=== PATIENT | male | born 1955 ===

== ENCOUNTER 2023-08-26 15:16 | Outpatient (CLI) | payer MEDICARE, SELFPAY ==
--- NOTE | 2023-08-26 15:27 | CT_ITS ---
WS: [id number] CT ABDOMEN AND PELVIS WITH CONTRAST HISTORY: RECTAL MASS, history of prostate cancer. TECHNIQUE: Imaging performed of the abdomen and pelvis with IV contrast. Single phase imaging of the abdomen. Coronal and sagittal reformats are submitted. All CT scans at [facility] use at [address] one of these dose optimization techniques: automated exposure control; mA and/or kV adjustment per patient size (includes targeted exams where dose is matched to clinical indication); or iterative re construction. IV CONTRAST: Omnipaque 350; 100 mL IV. Oral contrast: Yes. DLP: 337.93 mGy.cm COMPARISON: None available. Lower thorax: Benign granuloma at the lung bases. Heart is normal size. Small hiatal hernia. Liver/biliary system: Normal size liver. Too small to characterize low-attenuation nodule measuring 5 mm in the RIGHT lobe. Most likely this is a cyst. No masses. Normal portal vein. There are few scatt ered granulomata. Gallbladder: Normal. No gallstones or wall thickening. No pericholecystic fluid. Pancreas: Normal size pancreas and pancreatic duct. No adjacent inflammation. Spleen: Normal size with numerous granulomata. Adrenal glands: Normal. Right kidney: Normal. Left kidney: Normal. Aorta: Moderate atherosclerosis with no aneurysm. Lymphadenopathy: There is a single RIGHT obturator lymph node measuring 1.4 cm in diameter. Free fluid: None. GI tract: Normal stomach. No small bowel obstruction. Marked tortuosity of the colon with overlapping loops and constipation. The appendix is normal. There is an area of soft tissue fullness towards the rectum with displacement of the lumen. Soft tissue prominence is to the LEFT of midline. By history patient has a known rectal mass. Soft tissue prominence extends over a length of 2.3 cm and transvers rianna by 3.2 cm. Abdominal wall: Fat containing umbilical hernia. Pelvis: No free fluid. Numerous metallic seeds are present in the prostate gland from treatment relat ed to prostate cancer. The urinary bladder is negative. Bones: Unremarkable. IMPRESSION: 1. Soft tissue mass centered near the rectum. There is mild distortion of the soft tissues and displ acement of the lumen to the RIGHT. This would correspond to the history of a rectal mass. Mass measur es approximately 2.3 x 3.2 cm. This should be evaluated by colonoscopy. 2. Diffuse constipation. No obstruction. 3. Single RIGHT obturator lymph node measures 1.4 cm. Indeterminate. 4. Prior granulomatous disease. 5. No metastatic lesions within the osseous structures. 6. Moderate atherosclerosis aorta.
[2023-08-26] MEDS: iohexol 350 mg/mL 500 mL Btl (per mL) IV (15:49)
[2023-08-26] MEDS: iohexol 350 mg/mL 500 mL Btl (per mL) PO (15:50)
[2023-08-26 16:52] LABS: Blood Urea Nitrogen 11 mg/dL (8-23); Glomerular Filtration Rate 74.1 mL/min (90-130)
== END 2023-08-26 15:17 | disposition home or self-care (01) ==
LOC: RAD 15:19
PROVIDERS: Family Provider Nurse Practitioner; PCP Nurse Practitioner; Visit Provider Nurse Practitioner Family
DX: K62.9 Disease of anus and rectum, unspecified (principal); Z85.46 Personal history of malignant neoplasm of prostate; K59.00 Constipation, unspecified
CPT/HCPCS: 74177; 82565; 84520; Q9967

== ENCOUNTER → 2024-09-23 13:22 | Outpatient (BNVA) | payer MEDICARE, SELFPAY | PROVIDERS: Family Provider Nurse Practitioner; PCP Nurse Practitioner; Visit Provider Emergency Medicine | DX: R05.9 Cough, unspecified (principal); J18.9 Pneumonia, unspecified organism; Z95.828 Presence of other vascular implants and grafts | CPT/HCPCS: 71046; 87400; 87426 ==

== ENCOUNTER 2025-04-14 11:13 | Emergency (ER) | payer MEDICARE, SELFPAY ==
[2025-04-14 11:36] VITALS: BP 102/69; PULSE 77; RESP 17; TEMP 36.4; O2SAT 96; BMI 20.5
[2025-04-14 12:14] LABS: Basophils # 0.1 10^3/uL (0.0-0.1); Basophils % 0.4 %; Eosinophils # 0.1 10^3/uL (0.0-0.8); Eosinophils % 0.6 %; Hematocrit 36.5 % (37-53); Lymphocytes # 1.2 10^3/uL (0.8-4.8); Lymphocytes % 10.3 %; Mean Corpuscular HGB Conc 30.7 g/dL (30-55); Mean Corpuscular Hemoglobin 26.7 pg (27-33); Mean Corpuscular Volume 87.1 fl (82-101); Mean Platelet Volume 9.9 fL (7.4-10.4); Monocytes # 0.4 10^3/uL (0.2-0.9); Monocytes % 3.5 %; Neutrophils # 9.79 10^3/uL (1.8-7.7); Neutrophils % 84.4 %; Nucleated Red Blood Cells % 0 %; Platelet Count 347 10^3/cmm (157-399); Red Blood Count 4.19 10^6/uL (3.85-5.65)
[2025-04-14 12:24] VITALS: BP 129/71; PULSE 78; O2SAT 98
[2025-04-14 12:28] LABS: Bilirubin Urine Negative (Negative); Blood Urine Negative (Negative); Glucose Urine UA Negative (Normal); Ketones Urine Trace (Negative); Leukocyte Esterase Urine Negative (Negative); Nitrate Urine Negative (Negative); Protein Urine Negative (Negative); Urine Appearance Clear (CLEAR); Urine Color Yellow (Yellow); pH Urine 5.5 (5-7)
[2025-04-14 12:30] LABS: Add Urine Microscopic? YES; Bacteria Urine None Seen /hpf; Hyaline Casts Urine 19.02 /lpf; RBC Urine 0-2 /hpf (0-2); Squamous Epithelial Cell Urine 0-5 /hpf (0-5); WBC Urine 0-5 /hpf (0-5)
[2025-04-14 12:35] LABS: Alanine Aminotransferase 6 U/L (0-41); Albumin Level 3.7 g/dL (3.5-5.2); Alkaline Phosphatase 77 U/L (40-130); Anion Gap 17.2 (5-19); Aspartate Amino Transferase 10 U/L (0-40); Blood Urea Nitrogen 14 mg/dL (8-23); Calcium 8.9 mg/dL (8.5-10.5); Carbon Dioxide 26 mmol/L (22-29); Chloride 100 mmol/L (98-107); Creatinine Clr Calc Pharmacy 57.9215; Globulin 3.1 g/dL (1.3-4.6); Glomerular Filtration Rate 66.2 mL/min (90-130); Glucose 158 mg/dL (65-115); Osmolality Calculated 292 mOsm/kg (285-295); Potassium 4.2 mmol/L (3.5-5.1); Sodium 139 mmol/L (136-145); Total Bilirubin 0.2 mg/dL (0.15-1.2); Total Protein 6.8 g/dL (6.6-8.7)
[2025-04-14 12:38] LABS: UA Slide Review UA Slide Review Perf
[2025-04-14 12:40] VITALS: BP 115/74; PULSE 75; O2SAT 99
[2025-04-14 12:40] LABS: Add Urine Culture? No
--- NOTE | 2025-04-14 13:10 | PC.PHAR ---
Pt has a long list of medications ordered from [facility] for an appointment tomorrow 04/15/25.
--- NOTE | 2025-04-14 13:14 | W.ED.MALEGU ---
HPI - Male Genitourinary General: Chief complaint: Urogenital-Male Stated complaint: pain, trouble urinating, Time Seen by Provider: 04/14/25 12:18 History of Present Illness: 69-year-old male presents with some dysuria, feels like he is not completely emptying his bladder little bit of burning when he pees. He reports this been going on since yesterday. He does have a history of stage IV colon cancer and was concerned that that might have caused the issue. Associated symptoms: Reports dysuria Related Data Home Medications ?Medication ?Instructions ?Recorded ?Confirmed lisinopril 10 mg tablet 10 mg PO QAM 09/23/24 04/14/25 omeprazole 40 mg capsule,delayed 40 mg PO DAILY 04/14/25 04/14/25 release sertraline 50 mg tablet 50 mg PO DAILY 04/14/25 04/14/25 trazodone 100 mg tablet 100 mg PO BEDTIME 04/14/25 04/14/25 Allergies Allergy/AdvReac Type Severity Reaction Status Date / Time No Known Allergies Allergy Unverified 09/23/24 12:59 Review of Systems : Reports: difficulty urinating and dysuria [facility] ED PFSH: Social History Smoking and tobacco/nicotine status: former use of tobacco/nicotine Physical Exam Const: COMMON NORMALS: no acute distress, patient oriented x3 and alert Resp: COMMON NORMALS: normal respiratory effort and clear to auscultation bilaterally AUSCULTATION: clear to auscultation bilaterally Cardio: COMMON NORMALS: regular rate and regular rhythm RATE: regular rate RHYTHM: regular rhythm GI: COMMON NORMALS: Soft to palpation PALPATION: Yes Soft to palpation and Yes Tenderness to palpation present (GI) (Mild suprapubic) : COMMON NORMALS: Yes no CVA tenderness BLADDER/KIDNEY EXAM: Yes no CVA tenderness Back/Pelvis: COMMON NORMALS: no CVA tenderness Neuro: COMMON NORMALS: patient oriented x3 SENSORIUM/ORIENTATION: Yes alert Psych: COMMON NORMALS: mental status grossly normal, Normal thought process present and cooperative THOUGHT PROCESS: Normal thought process present Course Vital Signs: Vital signs: Vital Signs Temperature 97.6 F 04/14/25 11:36 Pulse Rate 75 04/14/25 12:40 Respiratory Rate 17 04/14/25 11:36 Blood Pressure 115/74 04/14/25 12:40 Pulse Oximetry 99 04/14/25 12:40 Oxygen Delivery Me thod Room Air 04/14/25 12:40 MDM - Male Medical Decision Making Patient's labs were reviewed. He has a very minimal elevated of his white count but otherwise no significant acute findings. Patient's urinalysis is not consistent with urinary tract infection. Patient is having some dysuria. I discussed with him some [id number] Azo. I also recommended he follow-up with his primary care provider for further evaluation as if his symptoms worsen he may need further workup and possibly started on a medication for enlarged prostate if they determine that would benefit him. Patient was stable and discharged home. Lab Data 04/14/25 12:02 04/14/25 12:02 Laboratory Results WBC 11.60 10^3/uL (3.29-11.43) H 04/14/25 12:02 RBC 4.19 10^6/uL (3.85-5.65) 04/14/25 12:02 Hgb 11.20 g/dL (11.27-16.99) L 04/14/25 12:02 Hct 36.5 % (37-53) L 04/14/25 12:02 MCV 87.1 fl (82-101) 04/14/25 12:02 MCH 26.7 pg (27-33) L 04/14/25 12:02 MCHC 30.7 g/dL (30-55) 04/14/25 12:02 RDW 16.0 % (12.1-15.1) H 04/14/25 12:02 Plt Count 347 10^3/cmm (157-399) 04/14/25 12:02 MPV 9.9 fL (7.4-10.4) 04/14/25 12:02 Neut % (Auto) 84.4 % 04/14/25 12:02 Lymph % (Auto) 10.3 % 04/14/25 12:02 [place] % (Auto) 3.5 % 04/14/25 12:02 Eos % (Auto) 0.6 % 04/14/25 12:02 Baso % (Auto) 0.4 % 04/14/25 12:02 Neut # (Auto) 9.79 10^3/uL (1.8-7.7) H 04/14/25 12:02 Lymph # (Auto) 1.2 10^3/uL (0.8-4.8) 04/14/25 12:02 [place] # (Auto) 0.4 10^3/uL (0.2-0.9) 04/14/25 12:02 Eos # (Auto) 0.1 10^3/uL (0.0-0.8) 04/14/25 12:02 Baso # (Auto) 0.1 10^3/uL (0.0-0.1) 04/14/25 12:02 Nucleated RBC % (auto) 0 % 04/14/25 12:02 Nucleated RBCs # 0.0 /100WBC 04/14/25 12:02 Sodium 139 mmol/L (136-145) 04/14/25 12:02 Potassium 4.2 mmol/L (3.5-5.1) 04/14/25 12:02 Chloride 100 mmol/L (98-107) 04/14/25 12:02 Carbon Dioxide 26 mmol/L (22-29) 04/14/25 12:02 Anion Gap 17.2 (5-19) 04/14/25 12:02 BUN 14 mg/dL (8-23) 04/14/25 12:02 Creatinine 1.1 mg/dL (0.7-1.2) 04/14/25 12:02 GFR Calculation 66.2 mL/min (90-130) L 04/14/25 12:02 Glucose 158 mg/dL (65-115) H 04/14/25 12:02 Calculated Osmolality 292 mOsm/kg (285-295) 04/14/25 12:02 Calcium 8.9 mg/dL (8.5-10.5) 04/14/25 12:02 Total Bilirubin 0.2 mg/dL (0.15-1.2) 04/14/25 12:02 AST 10 U/L (0-40) 04/14/25 12:02 ALT 6 U/L (0-41) 04/14/25 12:02 Alkaline Phosphatase 77 U/L (40-130) 04/14/25 12:02 Total Protein 6.8 g/dL (6.6-8.7) 04/14/25 12:02 Albumin 3.7 g/dL (3.5-5.2) 04/14/25 12:02 Globulin 3.1 g/dL (1.3-4.6) 04/14/25 12:02 Urine Color Yellow (Yellow) 04/14/25 12:18 Urine Appearance Clear (CLEAR) 04/14/25 12:18 Urine pH 5.5 (5-7) 04/14/25 12:18 Ur Specific [place] 1.020 (1.005-1.030) 04/14/25 12:18 Urine Protein Negative (Negative) 04/14/25 12:18 Urine Glucose (UA) Negative (Normal) 04/14/25 12:18 Urine Ketones Trace (Negative) 04/14/25 12:18 Urine Blood Negative (Negative) 04/14/25 12:18 Urine Nitrate Negative (Negative) 04/14/25 12:18 Urine Bilirubin Negative (Negative) 04/14/25 12:18 Urine Urobilinogen 1.0 mg/dL (Negative) 04/14/25 12:18 Ur Leukocyte Esterase Negative (Negative) 04/14/25 12:18 Urine RBC 0-2 /hpf (0-2) 04/14/25 12:18 Urine WBC 0-5 /hpf (0-5) 04/14/25 12:18 Ur Squamous Epith Cells 0-5 /hpf (0-5) 04/14/25 12:18 Amorphous Sediment Not Reportable 04/14/25 12:18 Urine Bacteria None seen /hpf (NONE) 04/14/25 12:18 Hyaline Casts 19.02 /lpf 04/14/25 12:18 No radiology studies performed this visit Discharge Plan Discharge Patient Disposition: Home Clinical Impression: Dysuria Condition: Stable Prescriptions: No Action lisinopril 10 mg tablet 10 mg PO QAM omeprazole 40 mg capsule,delayed release(DR/EC) 40 mg PO DAILY trazodone 100 mg tablet 100 mg PO BEDTIME sertraline 50 mg tablet 50 mg PO DAILY Discharge Orders: Discharge ED (Routine); Ordered 04/14/25 Ordered By: Ronnie Loomis Referrals: Tamy Arana [facility] [Primary Care Provider, Nurse Practitioner] Discharge Diet: Usual diet Discharge Activity: Resume usual activity Patient Instructions: Dysuria - Male, Opioid Safety, Pain Management Activity Restrictions/Additional Instructions: You may start [id number] Azo/Pyridium that is available in the pharmacy section at [facility] or please asked the pharmacist. Please follow-up with your primary care provider in a couple days for recheck and possible further evaluation if indicated. Please be sure you are drinking plenty of fluids please limit any soda or large amount of caffeine intake over the next day or 2. Print Language: Greek Coding Level of Care Code ED [employer]
[2025-04-14 13:27] VITALS: BP 105/71; PULSE 63; O2SAT 97
== END 2025-04-14 13:28 | disposition home or self-care (01) ==
PROVIDERS: Emergency Medicine; Emergency Provider Student in an Organized Health Care Education/Training Program; PCP Nurse Practitioner Family
DX: R30.0 Dysuria (principal); Z87.891 Personal history of nicotine dependence
CPT/HCPCS: 36415; 51798; 80053; 81001; 85025; 99283

== ENCOUNTER → 2025-05-03 09:33 | Outpatient (BNVA) | payer MEDICARE, SELFPAY | PROVIDERS: PCP Nurse Practitioner Family; Visit Provider Student in an Organized Health Care Education/Training Program | DX: K64.9 Unspecified hemorrhoids (principal) | CPT/HCPCS: 99204 ==

== ENCOUNTER 2025-05-08 09:51 | Day surgery (SDC) | payer MEDICARE, SELFPAY ==
[2025-05-08] VITALS (13 sets, daily range): BP systolic 83–112; BP diastolic 51–85; PULSE 70–103; RESP 14–18; TEMP 36.2–36.9; O2SAT 91–100; BMI 19.8
--- NOTE | 2025-05-08 10:03 | P.ANESASSM_ITS ---
Pre-Anesthetic Assessment Height/Weight: Height 5 ft 8 in Operation Date: 05/08/25 11:50 Proposed Procedures p Exam Under Anesthesia 84422 [id number] 18458 K64.9(Not Applicable) - Osiel Blanco MD s POSSIBLE Hemorrhoidectomy(Not Applicable) - Osiel Blanco MD s POSSIBLE Hemorrhoid Banding(Not Applicable) - Osiel Blanco MD Anesthetic Plan Other: No prior issues with anesthesia NPO since yesterday evening History of GERD, on omeprazole Hypertension on lisinopril Labs reviewed from 04/14/2025 and acceptable for procedure. Hemoglobin 11.2. Medications/Allergies Home Medications ?Medication ?Instructions ?Recorded ?Confirmed ?Last Taken ?Type lisinopril 10 mg tablet 10 mg PO QAM 09/23/2405/07/25 History omeprazole 40 mg capsule,delayed 40 mg PO DAILY 05/07/25 05/07/25 History release sertraline 50 mg tablet 50 mg PO DAILY 04/14/25 07/12/0105/07/25 History trazodone 100 mg tablet 100 mg PO BEDTIME 04/14/25 0 05/07/25 05/06/25 History docusate sodium 100 mg capsule 100 mg PO DAILY 5 05/07/25 05/07/25 History loperamide 2 mg capsule 2 mg PO PRN PRN Diarrhea 05/07/25 Unknown History olanzapine 5 mg tablet 5 mg PO DAILY 05/03/2505/0705/07/25 History ondansetron HCl 8 mg tablet 8 mg PO Q6H PRN Nausea And Vomiting 05/03/25 05/07/25 Unknown History oxycodone 5 mg tablet 5 mg PO Q6H PRN Pain, Mild 0 05/03/25 05/07/25 Unknown History prochlorperazine maleate 10 mg 10 mg PO PRN 05/03/25 0 05/07/25 Unknown History tablet tamsulosin 0.4 mg capsule 0.4 mg PO DAILY 05/03/2512/0105/07/25 History trifluridine 20 mg-tipiracil 8.19 1 tab PO DAILY 05/0305/07/25 05/07/25 History mg tablet ([place]f) Allergies Allergy/AdvReac Type Severity Reaction Status Date / Time No Known Allergies Allergy Verified 05/07/25 13:32 PFS Anesthesia Social History Smoking and tobacco/nicotine status: former use of tobacco/nicotine
--- NOTE | 2025-05-08 10:03 | ANES.PREANE2 ---
Pre-Anesthetic Assessment Height/Weight: Height 5 ft 8 in Operation Date: 05/08/25 11:50 Proposed Procedures p Exam Under Anesthesia 51106 [id number] 31315 K64.9(Not Applicable) - Osiel Blanco MD s POSSIBLE Hemorrhoidectomy(Not Applicable) - Osiel Blanco MD s POSSIBLE Hemorrhoid Banding(Not Applicable) - Osiel Blanco MD Anesthetic Plan Other: No prior issues with anesthesia NPO since yesterday evening History of GERD, on omeprazole Hypertension on lisinopril Labs reviewed from 04/14/2025 and acceptable for procedure. Hemoglobin 11.2. Medications/Allergies Home Medications ?Medication ?Instructions ?Recorded ?Confirmed ?Last Taken ?Type lisinopril 10 mg tablet 10 mg PO QAM 09/23/24 05/07/25 05/07/25 History omeprazole 40 mg capsule,delayed 40 mg PO DAILY 04/14/25 05/07/25 05/07/25 History release sertraline 50 mg tablet 50 mg PO DAILY 04/14/25 05/07/25 05/07/25 History trazodone 100 mg tablet 100 mg PO BEDTIME 04/14/25 05/07/25 05/06/25 History docusate sodium 100 mg capsule 100 mg PO DAILY 05/03/25 05/07/25 05/07/25 History loperamide 2 mg capsule 2 mg PO PRN PRN Diarrhea 05/03/25 05/07/25 Unknown History olanzapine 5 mg tablet 5 mg PO DAILY 05/03/25 05/07/25 05/07/25 History ondansetron HCl 8 mg tablet 8 mg PO Q6H PRN Nausea And Vomiting 05/03/25 05/07/25 Unknown History oxycodone 5 mg tablet 5 mg PO Q6H PRN Pain, Mild 05/03/25 05/07/25 Unknown History prochlorperazine maleate 10 mg 10 mg PO PRN 05/03/25 05/07/25 Unknown History tablet tamsulosin 0.4 mg capsule 0.4 mg PO DAILY 05/03/25 05/07/25 05/07/25 History trifluridine 20 mg-tipiracil 8.19 1 tab PO DAILY 05/03/25 05/07/25 05/07/25 History mg tablet ([place]f) Allergies Allergy/AdvReac Type Severity Reaction Status Date / Time No Known Allergies Allergy Verified 05/07/25 13:32 [facility] Anesthesia Social History Smoking and tobacco/nicotine status: former use of tobacco/nicotine
--- NOTE | 2025-05-08 10:35 | W.PM.OPSUD ---
Surgery/Procedure H&P Update DATE OF PROCEDURE: May 08, 2025 DATE H&P PERFORMED: 05/03/25 H&P UPDATE INFORMATION: I have reviewed H&P completed within last 30 days, I have examined patient prior to procedure and No changes to prior documentation PLANNED PROCEDURE: Operation Date: 05/08/25 11:50 Proposed Procedures p Exam Under Anesthesia 80918 [id number] 37866 K64.9(Not Applicable) - Osiel Blanco MD s POSSIBLE Hemorrhoidectomy(Not Applicable) - Osiel Blanco MD s POSSIBLE Hemorrhoid Banding(Not Applicable) - Osiel Blanco MD
--- NOTE | 2025-05-08 11:06 | ANES.PREANE2 ---
Pre-Anesthetic Assessment Height/Weight: Height 5 ft 8 in Weight 130 lb Temp Pulse Resp BP Pulse Ox O2 Del Method 98.4 F 103 H 18 112/85 100 Room Air 05/08/25 10:50 05/08/25 10:50 05/08/25 10:50 05/08/25 10:50 05/08/25 10:50 05/08/25 10:50 Preop Diagnosis: Hemorrhoids Operation Date: 05/08/25 11:50 Proposed Procedures p Exam Under Anesthesia 58251 [id number] 99847 K64.9(Not Applicable) - Osiel Blanco MD s POSSIBLE Hemorrhoidectomy(Not Applicable) - Osiel Blanco MD s POSSIBLE Hemorrhoid Banding(Not Applicable) - Osiel Blanco MD Was Beta Carine taken within 24 hours: N/A Was Clonidine taken within 24 hours: N/A Last intake: Intake Last Liquid Date 05/07/25 Last Liquid Time 20:00 Last Solid Date 05/07/25 Last Solid Time 10:00 Social No alcohol and No tobacco Exam alert and oriented x 3 Airway Submandibular: within normal limits Cervical ROM: within normal limits Mallampati: Class III Comments: Comments: Poor dentition, denies any loose Anesthetic Plan ASA status: 3 Anesthesia: General Other: No prior issues with anesthesia NPO since yesterday evening History of hypertension on lisinopril GERD, controlled with omeprazole Labs reviewed from 04/14/2025 and acceptable for procedure Patient states that ambulation is limited secondary to hemorrhoid pain Plan for general anesthesia Medications/Allergies Home Medications ?Medication ?Instructions ?Recorded ?Confirmed ?Last Taken ?Type lisinopril 10 mg tablet 10 mg PO QAM 09/23/24 05/07/25 05/07/25 History omeprazole 40 mg capsule,delayed 40 mg PO DAILY 04/14/25 05/07/25 05/07/25 History release sertraline 50 mg tablet 50 mg PO DAILY 04/14/25 05/07/25 05/07/25 History trazodone 100 mg tablet 100 mg PO BEDTIME 04/14/25 05/07/25 05/07/25 History docusate sodium 100 mg capsule 100 mg PO DAILY 05/03/25 05/07/25 05/07/25 History loperamide 2 mg capsule 2 mg PO PRN PRN Diarrhea 05/03/25 05/08/25 1 Week Ago History ~05/01/25 olanzapine 5 mg tablet 5 mg PO DAILY 05/03/25 05/07/25 05/07/25 History ondansetron HCl 8 mg tablet 8 mg PO Q6H PRN Nausea And Vomiting 05/03/25 05/08/25 1 Week Ago History ~05/01/25 oxycodone 5 mg tablet 5 mg PO Q6H PRN Pain, Mild 05/03/25 05/08/25 05/07/25 History prochlorperazine maleate 10 mg 10 mg PO PRN 05/03/25 05/08/25 1 Week Ago History tablet ~05/01/25 tamsulosin 0.4 mg capsule 0.4 mg PO DAILY 05/03/25 05/07/25 05/07/25 History trifluridine 20 mg-tipiracil 8.19 1 tab PO DAILY 05/03/25 05/07/25 05/07/25 History mg tablet ([place]) Allergies Allergy/AdvReac Type Severity Reaction Status Date / Time No Known Allergies Allergy Verified 05/07/25 13:32 Current Medications Generic Name Dose Route Start Last Admin Trade Name Freq PRN Reason Stop Dose Admin Sodium Chloride 1,000 mls @ 30 mls/hr 05/08/25 10:15 05/08/25 10:42 Sodium Chloride 0.9% IV 05/09/25 10:14 30 mls/hr .Q24H BALA Administration PFSH Anesthesia Social History Smoking and tobacco/nicotine status: former use of tobacco/nicotine
[2025-05-08] MEDS: ceFAZolin 2,000 mg SDV 2000 MG IVP (11:33)
[2025-05-08] MEDS: BUPivacaine 0.25% INJ 10 mL INJECTION (12:00)
[2025-05-08] MEDS: thrombin 5,000 unit SDV 5000 UNIT XX (12:10)
--- NOTE | 2025-05-08 12:25 | P.OP_ITS ---
Operative Report Date of procedure: May 08, 2025 Pre-op diagnosis: Hemorrhoids Post-op diagnosis: same Post-op diagnosis: Prominent right anterior and left hemorrhoidal columns. Post-op findings: Prominent right anterior and left hemorrhoidal columns. Procedure done: Hemorrhoidectomy Implants: N/A Specimens removed/disposition: Hemorrhoids sent to pathology Pathology: Hemorrhoids sent to pathology Surgeon: Osiel Blanco MD [employer] Worker: N/A Anesthesia: MAC Estimated blood loss (mL): 10 Complications: N/A Findings: Prominent right anterior and left hemorrhoidal columns. Condition: stable Disposition: same day Brief History: 69-year-old male who presented with painful and bleeding hemorrhoids. Discussed risk and benefits and patient agreed to proceed with exam under anesthesia of the rectum, possible hemorrhoidectomy, possible hemorrhoid banding. Procedure: Patient was brought in to the operating room. MAC was induced. Patient positioned in left lateral decubitus. The perineum was prepped with betadine and draped. A timeout was performed. All present were in agreement. Retractor was used to examine the rectum and patient had sizable hemorrhoids of the right anterior and left columns. These 2 pillars were excised. The exterior most edge of the hemorrhoid was grabbed using an Allis clamp. Electrocautery was used to incise the anoderm and subsequently to dissect the hemorrhoid pack off the muscle layer. Dissection proceeded cephalad until the pedicle of the hemorrhoid was encountered. At this point, a 3-0 chromic stick-tie was used to ligate the hemorrhoidal pedicle. The specimen was passed off and sent to pathology. The 3-0 chromic was ran distally in order to close the mucosal defect as well as the anoderm. There was minimal bleeding. Thrombin-soaked Gelfoam was then placed into the anus. Fluffs were applied on top and these were secured using mesh underwear. Patient tolerated procedure well.
--- NOTE | 2025-05-08 14:12 | ANE.PACU2 ---
Inpatient post-anesthesia follow up: Airway intact: Yes Vital signs: Temperature 97.8 F Pulse Rate 70 Respiratory Rate 17 Blood Pressure 110/72 Pulse Oximetry 95 Oxygen Delivery Me thod Room Air Oxygen Flow Rate Fraction of Inspir ed Oxygen Hydration adequate: Yes Nausea and vomiting: No Pain level: 1 Mental status: Baseline
== END 2025-05-08 14:00 | disposition home or self-care (01) ==
PROVIDERS: PCP Nurse Practitioner Family; Visit Provider Student in an Organized Health Care Education/Training Program
PROC: (CPT 46260; principal; 2025-05-08 11:50)
PROC: (CPT 46260; 2025-05-08 11:50)
DX: K64.9 Unspecified hemorrhoids (principal); K21.9 Gastro-esophageal reflux disease without esophagitis; I10 Essential (primary) hypertension; Z87.891 Personal history of nicotine dependence
CPT/HCPCS: 46260; 88304; J0131; J0690; J1100; J1171; J1885; J2405; J2704; J3010; J3490; J7030; J9999

== ENCOUNTER → 2025-05-30 08:49 | Outpatient (BNVA) | payer MEDICARE, SELFPAY | PROVIDERS: PCP Nurse Practitioner Family; Visit Provider Student in an Organized Health Care Education/Training Program | DX: Z98.890 Other specified postprocedural states (principal) | CPT/HCPCS: 99024 ==